=== PATIENT | female | born 1965 | race Caucasian/White ===

== ENCOUNTER 2019-11-07 07:25 | Outpatient (CLI) | payer OTHER, SELFPAY ==
[2019-11-07 08:55] LABS: Alanine Aminotransferase 54 U/L (14-59); Albumin Level 3.8 g/dL (3.4-5.0); Alkaline Phosphatase 63 U/L (46-116); Anion Gap 14.5 mmol/L (7-16); Aspartate Amino Transferase 35 U/L (15-37); Bilirubin,Total 0.3 mg/dL (0.00-1.00); Blood Urea Nitrogen 15 mg/dL (7-18); Calcium 9.6 mg/dL (8.5-10.1); Carbon Dioxide 25 mmol/L (21-32); Chloride 102 mmol/L (98-108); Estimated Glomerular Filt Rate 35; Glucose 186 mg/dL (70-99); Osmolality Calculated 289 mOsm/kg (285-295); Potassium 4.5 mmol/L (3.5-5.1); Sodium 137 mmol/L (136-145); Total Protein 7.9 g/dL (6.4-8.2)
== END 2019-11-07 07:26 | disposition home or self-care (01) ==
PROVIDERS: PCP Family Medicine
DX: N17.9 Acute kidney failure, unspecified (principal); N39.0 Urinary tract infection, site not specified
CPT/HCPCS: 36415; 80053

== ENCOUNTER 2019-11-14 07:29 | Outpatient (CLI) | payer OTHER, SELFPAY ==
[2019-11-14 09:54] LABS: Alanine Aminotransferase 51 U/L (14-59); Alkaline Phosphatase 62 U/L (46-116); Anion Gap 16.3 mmol/L (7-16); Aspartate Amino Transferase 28 U/L (15-37); Bilirubin,Total 0.5 mg/dL (0.00-1.00); Blood Urea Nitrogen 18 mg/dL (7-18); Calcium 9.6 mg/dL (8.5-10.1); Carbon Dioxide 24 mmol/L (21-32); Chloride 102 mmol/L (98-108); Estimated Glomerular Filt Rate 34; Glucose 186 mg/dL (70-99); Osmolality Calculated 292 mOsm/kg (285-295); Potassium 4.3 mmol/L (3.5-5.1); Sodium 138 mmol/L (136-145); Total Protein 7.9 g/dL (6.4-8.2)
== END 2019-11-14 07:30 | disposition home or self-care (01) ==
PROVIDERS: PCP Family Medicine
DX: R79.89 Other specified abnormal findings of blood chemistry (principal)
CPT/HCPCS: 36415; 80053

== ENCOUNTER 2021-09-30 09:19 | Outpatient (CLI) | payer OTHER, SELFPAY ==
--- NOTE | ~2021-09-30 | NM_ITS ---
EXAMINATION: NM bone scan whole body DATE: 09/30/2021 13:13 INDICATION: Hypercalcemia TECHNIQUE: 26.2 mCi Tc-99m HDP was administered intravenously. Delayed whole-body scintigrams were o btained. COMPARISON: There are no relevant imaging studies at our institution. FINDINGS: Typical pattern of likely degenerative joint centered uptake at the bilateral knees, multiple joints in the bilateral feet at the right acromioclavicular joint. Additional likely degenerative disc and f acet joint centered uptake in the cervical and lumbar spine. No other suspicious bone lesions identif ied. IMPRESSION: 1. Typical pattern of likely degenerative joint and disc centered uptake in the axial and obliquely s [place]. Reviewed, dictated and finalized at location B. IMPRESSION: 1. Typical pattern of likely degenerative joint and disc centered uptake in the axial and obliquely skeleton.
== END 2021-09-30 09:20 | disposition home or self-care (01) ==
PROVIDERS: PCP Family Medicine; Visit Provider Internal Medicine Nephrology
DX: E83.52 Hypercalcemia (principal); M89.9 Disorder of bone, unspecified
CPT/HCPCS: 78306; A9561

== ENCOUNTER 2023-01-21 15:25 | Outpatient (CLI) | payer OTHER, SELFPAY ==
[2023-01-21 15:44] LABS: Basophils Percent Auto 0.6 % (0.2-1.2); Eosinophils Absolute Auto 0.1 K/mm3 (0-0.3); Eosinophils Percent Auto 1.4 % (0-4.4); Hematocrit 38.9 % (37.0-47.0); Hemoglobin 12.8 g/dL (12.0-15.0); Immature Granulocyte Absolute 0.02 K/mm3 (0.00-0.031); Immature Granulocyte Percent A 0.3 % (0-0.5); Lymphocytes Absolute Auto 2.74 K/mm3 (0.9-3.2); Lymphocytes Percent Auto 37.9 % (18.3-44.2); Mean Corpuscular HGB Conc 32.9 g/dl (32-36); Mean Corpuscular Hemoglobin 28.8 pg (26-34); Mean Corpuscular Volume 87.4 fl (80-100); Mean Platelet Volume 8.6 fl (7.4-10.4); Monocytes Absolute Auto 0.5 K/mm3 (0.1-0.6); Monocytes Percent Auto 7.5 % (2.6-8.5); Neutrophils Absolute Auto 3.8 K/mm3 (1.3-6.7); Neutrophils Percent Auto 52.3 % (45.5-73.1); Platelet Count Result 300 k/mm3 (150-375); Red Blood Count 4.45 M/mm3 (4.2-5.4); Red Cell Distribution Width 14.6 % (11.5-14.5); White Blood Count 7.2 K/mm3 (4.5-10.0)
[2023-01-21 16:33] LABS: Alanine Aminotransferase 24 U/L (6-35); Albumin Level 4.7 g/dL (3.5-5.1); Alkaline Phosphatase 77 U/L (38-126); Anion Gap 10 mmol/L (8-16); Aspartate Amino Transferase 28 U/L (14-36); Bilirubin,Total 0.5 mg/dL (0.2-1.3); Blood Urea Nitrogen 19 mg/dL (7-17); Carbon Dioxide 27 mmol/L (22-30); Chloride 102 mmol/L (98-107); Estimated Glomerular Filt Rate 42; Glucose 110 mg/dL (65-110); Potassium 4.2 mmol/L (3.4-5.0); Sodium 139 mmol/L (137-145)
[2023-01-21 16:41] LABS: Immunoglobulin A 505 mg/dL (70-400); Immunoglobulin G 1482 mg/dL (700-1600); Immunoglobulin M 187 mg/dL (40-230)
[2023-01-25 10:22] LABS: Kappa\\Lambda Light Chains 1.36 (0.26-1.65); Lambda Light Chain 38.7 mg/L (5.7-26.3)
[2023-01-26 16:54] LABS: Albumin 4.4 g/dL (3.8-4.8); Alpha 1 Globulin 0.3 g/dL (0.2-0.3); Alpha 2 Globulin 0.7 g/dL (0.5-0.9); Beta 1 Globulin 0.6 g/dL (0.4-0.6); Gamma Globulin 1.5 g/dL (0.8-1.7)
== END 2023-01-21 15:26 | disposition home or self-care (01) ==
LOC: ANHLAB 15:30
PROVIDERS: PCP Family Medicine; Visit Provider Internal Medicine Hematology & Oncology
DX: C90.00 Multiple myeloma not having achieved remission (principal)
CPT/HCPCS: 36415; 80053; 82784; 83883; 84155; 84165; 85025

== ENCOUNTER 2023-02-11 15:53 | Outpatient (CLI) | payer OTHER, SELFPAY ==
--- NOTE | ~2023-02-11 | XR_ITS ---
EXAMINATION: BONE SURVEY/METASTATIC SURVEY DATE: 02/11/2023 INDICATION: Multiple myeloma TECHNIQUE: A skeletal survey was performed including AP views of the chest, abdomen and pelvis; AP an d lateral views of the cervical, thoracic and lumbar spine; AP and lateral view of the skull, and AP and lateral views of the appendicular skeleton excluding the hands and feet. COMPARISON: Bone scan dated 09/30/2021 FINDINGS: There is a single 6 mm round lucency projecting over the skull near the vertex just to the right of m idline which is without evident correlate on the lateral projection Mild S-shaped curvature of the sp ine with mild thoracic and lumbar levocurvature and mild dextrocurvature the thoracolumbar junction. Moderate cervical, thoracic and lumbar spondylosis. Cholecystectomy clips in right upper quadrant. Mu ltiple additional surgical clips in the right lower quadrant. Osteoarthritis at the left knee with se [place] joint space narrowing in the medial compartment and with subarticular cystlike changes along the apical ridge at the patella. No other suspicious lytic or blastic lesions throughout the axial or ap pendicular skeleton. Lungs are clear with no focal airspace opacities, pulmonary edema, pleural effus ion or pneumothorax. Cardiomediastinal silhouette is normal. Normal bowel gas pattern. IMPRESSION: 1. Single small round lucency near the vertex of the skull which could represent either multiple myel lillian or an arachnoid granulation. No other suspicious lytic or blastic bone lesions identified. Reviewed, dictated and finalized at location A. IMPRESSION: 1. Single small round lucency near the vertex of the skull which could represen t either multiple myeloma or an arachnoid granulation. No other suspicious lyti c or blastic bone lesions identified.
== END 2023-02-11 15:54 | disposition home or self-care (01) ==
LOC: ANHIMG 15:57
PROVIDERS: PCP Family Medicine; Visit Provider Internal Medicine Hematology & Oncology
DX: C90.00 Multiple myeloma not having achieved remission (principal)
CPT/HCPCS: 77074